=== PATIENT | female | born 1985 | race Caucasian/White ===

== ENCOUNTER 2016-05-31 06:24 | Inpatient (IN) | payer OTHER ==
[2016-05-31] VITALS (50 sets, daily range): BP systolic 79–180; BP diastolic 33–148; PULSE 20–107; RESP 16–20; TEMP 98.1–98.8
[~2016-05-31 06:24] MED LIST: PREN0.01 PO
[2016-05-31] MEDS ORDERED: LACTATED RINGER'S 1000 ML INJ 1,000 ML IV PRN (07:32)
[2016-05-31] MEDS ORDERED: LACTATED RINGER'S 1000 ML INJ 1,000 ML IV SCH (07:32)
--- NOTE | 2016-05-31 07:32 | PD ---
HPI Chief Complaint contractions Date Seen: May 31, 2016 Time Seen: 07:10 Travel History International Travel<30 Days: No Contact w/Intl Traveler<30Days: No Known Affected Area: No History of Present Illness HPI 31yo at 40w5d gestation here for contractions since last pm. Cervix was 5cm in office yesterday. GBS negative. Appt for induction tomorrow Para: 1 : 2 Last Menstrual Period: May 31, 2016 History Past Medical History Narrative Medical Rubella non-immune Past Surgical History Narrative Surgical appendectomy Family History Family History: Negative Social History Alcohol Use: No Tobacco Use: No Substance Abuse: No Allergies-Medications (Allergen,Severity, Reaction): Coded Allergies: No Known Allergies (Unverified , 11/08/15) Home Meds Reported Medications Vitamins 1 Tab PO DAILY 11/08/15 Review of Systems Except as stated in HPI: all other systems reviewed are Neg Physical Exam Narrative GENERAL: Well-nourished, well-developed patient. SKIN: Warm and dry. HEAD: Normocephalic and atraumatic. EYES: No scleral icterus. No injection or drainage. ENT: No nasal drainage noted. Mucous membranes pink. Airway patent. NECK: Supple, trachea midline. No JVD. CARDIOVASCULAR: Regular rate and rhythm without murmurs, gallops, or rubs. RESPIRATORY: Breath sounds equal bilaterally. No accessory muscle use. BREASTS: Bilateral exam showed no masses , no retractions, no nipple discharge. ABDOMEN/GI: Abdomen soft, non-tender, bowel sounds present, no rebound, no guarding Gravid to [-] weeks size Fundal Height: 40 GENITOURINARY: External Genitalia: intact and normal in appearance BUS glands: normal Cervix: [-] mid position Dilatation: [-] 7 Effacement: [-] 80 Station: [-] -1 Presentation: [-] vertex Membranes: [intact or ruptured]intact Uterine Contractions: [-]toco with irregular contractions FHT's: Category: [-] 1 Baseline: [-]140 Reactive: [-] moderate Variability: [-] moderate Decels: [-] late decelerations noted on approx 50% contractions when initially admitted, now category 1 tracing EXTREMITIES: No cyanosis or edema. BACK: Nontender without obvious deformity. No CVA tenderness. NEUROLOGICAL: Awake and alert. Motor and sensory grossly within normal limits. Five out of 5 muscle strength in all muscle groups. Normal speech. MDM Medical Record Reviewed: Yes Plan [id number] here in active labor Category [address] Hernández notified Diagnosis Diagnosis: Primary Impression: 40 weeks gestation of Additional Impression: Rubella non-immune status, antepartum Saray Chris MD May 31, 2016 07:32
[2016-05-31] MEDS ORDERED: fentaNYL 2MCG-BUPIV 0.125% INJ 100 ML ONE (07:45)
[2016-05-31] MEDS ORDERED: LIDOCAINE HCL 1% 50 ML VIAL I-DERMAL PRN (07:45)
[2016-05-31] MEDS ORDERED: SODIUM CHLORID 0.9% 500 ML INJ 500 ML IV PRN (07:45)
[2016-05-31] MEDS ORDERED: CITRIC ACID-SODIUM CITRATE LIQ 30 ML UDC PO SCH (07:45)
[2016-05-31] MEDS ORDERED: MINERAL OIL 10 ML VIAL TOPICAL PRN (07:45)
[2016-05-31] MEDS ORDERED: LIDOCAINE HCL 1% 50 ML VIAL INFIL PRN (07:45)
[2016-05-31] MEDS ORDERED: OXYTOCIN 30 UNITS-500ML PREMIX 500 ML IV ONE (07:45)
[2016-05-31 07:49] LABS: AUTOMATED NEUTROPHIL # 9.6 TH/MM3 (1.8-7.7); BASOPHIL % 0.2 % (0.0-2.0); EOSINOPHIL % 0.3 % (0.0-4.0); HEMATOCRIT 37.7 % (35.0-46.0); HEMO FLAGS DIFF FINAL; LYMPH % 10.5 % (9.0-44.0); LYMPHOCYTE # 1.2 TH/MM3 (1.0-4.8); MEAN CELL VOLUME 87.6 FL (80.0-100.0); MEAN CORPUSCULAR HEMOGLOBIN 30.4 PG (27.0-34.0); MEAN CORPUSCULAR HGB CONC 34.7 % (32.0-36.0); MONO % 6.8 % (0.0-8.0); NEUT % 82.2 % (16.0-70.0); PLATELET COUNT 190 TH/MM3 (150-450); RED CELL DISTRIBUTION WIDTH 13.8 % (11.6-17.2); WHITE BLOOD COUNT 11.7 TH/MM3 (4.0-11.0)
[2016-05-31 07:52] LABS: BACTERIA, URINE FEW /hpf; BLOOD, URINE MOD (NEG); GLUCOSE,URINE NEG (NEG); KETONE, URINE NEG (NEG); MUCUS URINE FEW /lpf (OCC); NITRITE,URINE NEG (NEG); PH, URINE 7.5 (5.0-8.5); SQUAMOUS EPITHELIAL CELL URINE 9 /hpf (0-5); TRANSITIONAL EPI CELLS, URINE <1 /hpf; URINE COLOR YELLOW (YELLW/STRAW)
[2016-05-31] MEDS ORDERED: SODIUM CHLOR 0.9% 1000 ML INJ 1,000 ML IV PRN (07:52)
[2016-05-31 07:53] LABS: COMMENT (UR) CULTURE INDICATED; CULTURE IF INDICATED CULTURE INDICATED
[2016-05-31] MEDS ORDERED: fentaNYL 2MCG-BUPIV 0.125% INJ 100 ML EPIDURAL SCH (09:30)
[2016-05-31] MEDS ORDERED: DO NOT ADMINISTER ANTICOAGULANTS XX PRN (09:30)
[2016-05-31] MEDS ORDERED: ePHEDrine/NS 50 MG/5 ML SYR IV PRN (09:30)
[2016-05-31] MEDS ORDERED: NO SYSTEM NARCOTICS XX PRN (09:30)
[2016-05-31] MEDS ORDERED: OXYTOCIN 30 UNITS-500ML PREMIX 500 ML IV SCH (10:15)
--- NOTE | 2016-05-31 12:51 | PD.OB.DELI ---
Anesthesia: Epidural Episiotomy: None Vaginal Delivery: Normal Presentation: Occiput anterior, Compound (left ue) Nuchal Cord: None : Female One Minute : 8 Five Minute : 9 Weight: 3305 gm Infant Care: Suctioned, Spontaneous crying, Responded to stimulation Placenta: Spontaneous delivery, Intact, 3 vessel cord Laceration: No lacerations Adam Alvarez MD May 31, 2016 12:51
[2016-05-31] MEDS ORDERED: BENZOCAINE 20% TOPICAL SPRAY 60 ML CAN TOPICAL PRN (13:00)
[2016-05-31] MEDS ORDERED: ALUMINUM/MAGNESIUM/SIMETH 30 ML CUP PO PRN (13:00)
[2016-05-31] MEDS ORDERED: ONDANSETRON ODT 4 MG TAB PO PRN (13:00)
[2016-05-31] MEDS ORDERED: OXYTOCIN 10 UNIT/ML AMP XX ONE (13:00)
[2016-05-31] MEDS ORDERED: WITCH HAZEL 50%/GLYCERIN 12.5% 40 PAD JAR TOPICAL PRN (13:00)
[2016-05-31] MEDS ORDERED: SODIUM CHLORIDE 0.9% FLUSH 5 ML FLUSH IV SCH (13:00)
[2016-05-31] MEDS ORDERED: SODIUM CHLORIDE 0.9% FLUSH 5 ML FLUSH IV PRN (13:00)
[2016-05-31] MEDS ORDERED: ZOLPIDEM TARTRATE 5 MG TAB PO PRN (13:00)
[2016-05-31] MEDS ORDERED: DOCUSATE SODIUM 50 MG/SENNA 8.6 MG TAB PO PRN (13:00)
[2016-05-31] MEDS ORDERED: ACETAMINOPHEN 325 MG TAB PO PRN (13:00)
[2016-05-31] MEDS ORDERED: DIPHTH/TETANUS/ACEL PERTUSSIS (BOOSTER) 0.5 ML VIAL/PFS IM ONE (16:00)
[2016-05-31] MEDS ORDERED: MEASLES, MUMPS, RUBELLA VACCINE 0.5 ML VIAL SQ ONE (16:00)
[2016-06-01] MEDS: IBUPROFEN 600 MG TAB PO PRN ×2 (06:20→19:49)
[2016-06-01 08:37] VITALS: BP 108/72; PULSE 70; RESP 16; TEMP 98.7
--- NOTE | 2016-06-01 10:43 | HHI.OB ---
Subjective Post Day: 1 Remarks doing well Objective Vitals/I&O Vital Signs Date Time Temp Pulse Resp B/P Pulse Ox O2 Delivery O2 Flow Rate FiO2 05/31/16 21:12 98.1 88 16 106/66 05/31/16 14:31 97 112/62 05/31/16 14:04 20 05/31/16 14:01 92 109/59 05/31/16 14:00 20 05/31/16 13:51 94 123/56 05/31/16 13:11 20 05/31/16 13:02 93 163/119 05/31/16 13:01 94 120/81 05/31/16 13:00 20 05/31/16 12:45 20 05/31/16 12:30 99 117/63 05/31/16 12:01 80 97/45 05/31/16 11:07 20 05/31/16 11:01 75 87/51 05/31/16 10:46 107 94/37 Objective Remarks GENERAL: Well-nourished, well-developed patient. CARDIOVASCULAR: Regular rate and rhythm without murmurs, gallops, or rubs. RESPIRATORY: Breath sounds equal bilaterally. No accessory muscle use. ABDOMEN/GI: Abdomen soft, non-tender. Fundus: Firm, non-tender at umbilicus. GENITOURINARY: Light to moderate bleeding. EXTREMITIES: No cyanosis or edema, non-tender, without signs of DVT. Medications and IVs Current Medications Medications (Trade) Dose Ordered Sig/Celia Route Start Time Stop Time Status Last Admin Lactated Ringer's 1,000 ml @ 125 mls/hr Q8H IV 05/31/16 07:32 05/31/16 07:32 Lactated Ringer's 1,000 ml @ 3,000 mls/hr Q20M PRN IV 05/31/16 07:32 Sodium Chloride 500 ml @ 1,000 mls/hr ONCE PRN IV 05/31/16 07:45 (NS 1000 ml Inj) 1,000 ml @ 100 mls/hr Q10H PRN IV 05/31/16 07:52 (fentaNYL INJ) 50 mcg Q1H PRN IV PUSH 05/31/16 07:45 (fentaNYL INJ) 100 mcg Q1H PRN IV PUSH 05/31/16 07:45 Mineral Oil 10 ml 10 ml UNSCH PRN TOPICAL 05/31/16 07:45 Fentanyl/ Bupivacaine HCl 100 ml @ 0 mls/hr TITRATE EPIDURAL 05/31/16 09:30 (Pitocin 30 Units-NS 500 ml Premix) 500 ml @ 0 mls/hr TITRATE IV 05/31/16 10:15 05/31/16 10:12 (NS Flush) 2 ml BID IV 05/31/16 13:00 (NS Flush) 2 ml UNSCH PRN IV 05/31/16 13:00 (Tylenol) 650 mg Q4H PRN PO 05/31/16 13:00 (Motrin) 600 mg Q6H PRN PO 05/31/16 13:00 06/01/16 06:20 (Americaine 20% Top Spr) 1 spray Q4H PRN TOPICAL 05/31/16 13:00 (Tucks Pads) 1 applic QID PRN TOPICAL 05/31/16 13:00 (Rosa-Colace) 2 tab Q12H PRN PO 05/31/16 13:00 (Ambien) 5 mg HS PRN PO 05/31/16 13:00 (Mag-Al Plus Susp Liq) 15 ml Q8H PRN PO 05/31/16 13:00 (Zofran Odt) 4 mg Q6H PRN PO 05/31/16 13:00 Assessment/Plan Problem List: (1) Rubella non-immune status, antepartum (2) (spontaneous vaginal delivery) Assessment and Plan PPD 1 Continue routine supportive care Discharge Planning home ppd 2 Marcy Jessica MD Jun 01, 2016 10:43
[2016-06-01] MEDS ORDERED: IBUP-232 PO (11:33)
--- NOTE | 2016-06-01 11:33 | HHI.DCPOC ---
Discharge Care Plan Diagnosis: (1) (spontaneous vaginal delivery) Your Health Problems Are: Vaginal delivery Report Symptoms to Your Doctor -Temperate above 100.5 degrees -Redness, of incision or excessive or foul smelling drainage -Unusual pain or calf pain -Increased vaginal bleeding -Painful or difficulty urinating -Feelings of extreme sadness or anxiety after 2 weeks Goals to Promote Your Health * To prevent worsening of your condition and complications * To maintain your health at the optimal level Directions to Meet Your Goals Take your medications as prescribed Follow your dietary instruction Follow activity as directed Ensure plenty of rest for recovery Drink fluids for hydration Keep your appointments as scheduled Take your immunizations and boosters as scheduled If your symptoms worsen call your PCP, if no PCP go to Urgent Care Center or Emergency Room Smoking is Dangerous to Your Health. Avoid second hand smoke Call the 24-hour crisis hotline for domestic abuse at Marcy Jessica MD Jun 01, 2016 11:33
[2016-06-01 20:00] VITALS: BP 104/63; PULSE 70; RESP 18; TEMP 97.4
[2016-06-02 08:00] VITALS: BP 88/54; PULSE 63; RESP 16; TEMP 97.4; O2SAT 99
--- NOTE | 2016-06-02 08:01 | HHI.OB ---
Subjective Post Day: 2 Remarks doing well, ready to go home. baby cleared Objective Vitals/I&O Vital Signs Date Time Temp Pulse Resp B/P Pulse Ox O2 Delivery O2 Flow Rate FiO2 06/01/16 20:00 97.4 70 18 104/63 06/01/16 08:37 98.7 70 16 108/72 Objective Remarks GENERAL: Well-nourished, well-developed patient. CARDIOVASCULAR: Regular rate and rhythm without murmurs, gallops, or rubs. RESPIRATORY: Breath sounds equal bilaterally. No accessory muscle use. ABDOMEN/GI: Abdomen soft, non-tender. Fundus: Firm, non-tender at umbilicus. GENITOURINARY: Light to moderate bleeding. EXTREMITIES: No cyanosis or edema, non-tender, without signs of DVT. Medications and IVs Current Medications Medications (Trade) Dose Ordered Sig/Celia Route Start Time Stop Time Status Last Admin Lactated Ringer's 1,000 ml @ 125 mls/hr Q8H IV 05/31/16 07:32 05/31/16 07:32 Lactated Ringer's 1,000 ml @ 3,000 mls/hr Q20M PRN IV 05/31/16 07:32 Sodium Chloride 500 ml @ 1,000 mls/hr ONCE PRN IV 05/31/16 07:45 (NS 1000 ml Inj) 1,000 ml @ 100 mls/hr Q10H PRN IV 05/31/16 07:52 (fentaNYL INJ) 50 mcg Q1H PRN IV PUSH 05/31/16 07:45 (fentaNYL INJ) 100 mcg Q1H PRN IV PUSH 05/31/16 07:45 Mineral Oil 10 ml 10 ml UNSCH PRN TOPICAL 05/31/16 07:45 Fentanyl/ Bupivacaine HCl 100 ml @ 0 mls/hr TITRATE EPIDURAL 05/31/16 09:30 (Pitocin 30 Units-NS 500 ml Premix) 500 ml @ 0 mls/hr TITRATE IV 05/31/16 10:15 05/31/16 10:12 (NS Flush) 2 ml BID IV 05/31/16 13:00 (NS Flush) 2 ml UNSCH PRN IV 05/31/16 13:00 (Tylenol) 650 mg Q4H PRN PO 05/31/16 13:00 (Motrin) 600 mg Q6H PRN PO 05/31/16 13:00 06/01/16 19:49 (Americaine 20% Top Spr) 1 spray Q4H PRN TOPICAL 05/31/16 13:00 (Tucks Pads) 1 applic QID PRN TOPICAL 05/31/16 13:00 (Rosa-Colace) 2 tab Q12H PRN PO 05/31/16 13:00 (Ambien) 5 mg HS PRN PO 05/31/16 13:00 (Mag-Al Plus Susp Liq) 15 ml Q8H PRN PO 05/31/16 13:00 (Zofran Odt) 4 mg Q6H PRN PO 05/31/16 13:00 Assessment/Plan Problem List: (1) Rubella non-immune status, antepartum (2) (spontaneous vaginal delivery) Assessment and Plan PPD 2 Continue routine supportive care Discharge Planning home ppd 2 Marcy Jessica MD Jun 02, 2016 08:01
== END 2016-06-02 09:45 | disposition home or self-care (01) | DRG 775 ==
LOC: HOBED 06:24 → H2EB 07:34 → H1EA 15:21
PROVIDERS: ADMIT Obstetrics & Gynecology; ATTEND Obstetrics & Gynecology
PROC: 10E0XZZ Delivery of Products of Conception, External Approach (ICD-10-PCS; principal; 2016-05-31)
PROC: 3E0S3CZ (ICD-10-PCS; 2016-05-31)
PROC: 00HU33Z Insertion of Infusion Device into Spinal Canal, Percutaneous Approach (ICD-10-PCS; 2016-05-31)
DX: O32.6XX0 Maternal care for compound presentation, not applicable or unspecified (principal); Z37.0 Single live birth; Z3A.40 40 weeks gestation of pregnancy
CPT/HCPCS: 59025; 81001; 85025; 87086; 90715; 99285; J2590; J7120